=== PATIENT | female | born 1940 | race Caucasian/White ===

== ENCOUNTER 2017-01-24 17:27 | Emergency (ER) | payer OTHER ==
[~2017-01-24 17:27] MED LIST: ACCO20 PO; ADVAIR100 INH; ALEVE220 MG PO; ASAB PO; CAT1 PO; EYE INJECTION IJ; EYE INJECTIONS OPH; FISH-EPA1000 MG PO; GLUCOPHAGE1000 MG PO; GLUCPH PO; HCTZ25B PO; HYDROCHLOROT25 MG PO; LEVAQUIN750 MG PO; LIPITOR40 PO; NATURA2 OPH; NATURE'S OP; PLAVIX PO; PRILO PO; SINGULAIR1 PO; TEARS NATURA OPH; TESS PO; VENTOLIN HFA INH; VITAMIN D1000 UNI1 PO; ZOFRAN4 PO; ZOFRAN8 PO
== END 2017-01-24 19:42 | disposition home or self-care (01) ==
LOC: ER 17:27
DX: S93.402A Sprain of unspecified ligament of left ankle, initial encounter (principal); I10 Essential (primary) hypertension; K21.9 Gastro-esophageal reflux disease without esophagitis; E11.9 Type 2 diabetes mellitus without complications; Z86.73 Personal history of transient ischemic attack (TIA), and cerebral infarction without residual deficits; Z88.0 Allergy status to penicillin; Z88.2 Allergy status to sulfonamides; Z88.1 Allergy status to other antibiotic agents; Z88.8 Allergy status to other drugs, medicaments and biological substances; Z79.82 Long term (current) use of aspirin; Z79.84 Long term (current) use of oral hypoglycemic drugs; Z79.899 Other long term (current) drug therapy; X58.XXXA Exposure to other specified factors, initial encounter
CPT/HCPCS: 73610-LT; 99283